=== PATIENT | female | born 1960 | race Hispanic/Latino ===

== ENCOUNTER 2017-04-18 14:23 | Outpatient (CLI) | payer BC ==
--- NOTE | 2017-04-19 13:40 | Mammography Report ---
BONE DEXA:04/18/17 14:23:00 CLINICAL: Postmenopausal. No comparison. TECHNIQUE: Two site bone DEXA performed on an Hologic scanner. FINDINGS: The average BMD of the lumbar spine L1-L4 is 1.122g/cm squared with a T-score of +0.9 and a Z-score of +2.2. The average BMD of the left hip is 0.941g/cm squared with a T-score of 0 and a Z-score of +0.8. IMPRESSION: WHO classification: Normal with average fracture risk based on both spine and left hip measurements. RECOMMENDATION: Clinical correlation and routine screening. DEFINITIONS: BMD = Bone Mineral Density T-score = BMD related to mean peak bone mass of young adult (mean expressed in Standard Deviation) Z-score = Age matched BMD expressed in SD World Health Organization (WHO) Diagnostic Criteria Normal T-score > -1 SD Osteopenia T-score between -1 and -2.4 SD Osteoporosis T-score -2.5 SD or below NOTE: BMD is not the only risk factor for fracture. One should also consider factors such as the patient's age, risk of falling, previous osteoporotic fracture, family history of osteoporotic fractures, current smoker, and low body weight. Z-scores are not calculated if >80 years of age.
--- NOTE | 2017-04-19 14:05 | Mammography Report ---
BILATERAL DIGITAL SCREENING MAMMOGRAM with CAD: 04/18/17 14:23:00 CLINICAL: Routine screening. COMPARISON:11/28/15 FINDINGS: The breasts are mostly fatty with scattered bilateral fibroglandular densities. A right upper asymmetry on the MLO view requires additional imaging.No architectural distortion or suspicious calcifications.The left breast is negative. IMPRESSION: Right asymmetry requiring further workup. BI-RADS CATEGORY: 0 -- Additional Imaging Evaluation Required RECOMMENDATION: Recall for right exaggerated CC and MLO spot magnification views and right breast ultrasound if needed. ACR BI-RADS MAMMOGRAPHIC CODES: 0 = Needs additional imaging evaluation; 1 = Negative; 2 = Benign; 3 = Probably benign; 4 = Suspicious; 5 = Malignant; 6 = Known biopsy-proven malignancy COMMENT: 1. Dense breast tissue, i.e., adenosis, fibrocystic changes, etc., may obscure an underlying neoplasm. 2. Approximately 10% of cancers are not detected with mammography. 3. A negative mammography report should not delay biopsy if a clinically suspicious mass is present. COMMENT: Patient follow-up letters are generated via our [employer] application.
== END 2017-04-18 14:24 | disposition home or self-care (01) ==
LOC: SPVWC 14:23
PROVIDERS: ATTEND Preventive Medicine Public Health & General Preventive Medicine
DX: Z12.31 Encounter for screening mammogram for malignant neoplasm of breast (principal); Z13.820 Encounter for screening for osteoporosis; Z78.0 Asymptomatic menopausal state; Z80.3 Family history of malignant neoplasm of breast
CPT/HCPCS: 77067; 77080

== ENCOUNTER 2017-05-06 15:24 | Outpatient (CLI) | payer BC ==
--- NOTE | 2017-05-06 16:02 | Mammography Report ---
RIGHT DIGITAL DIAGNOSTIC MAMMOGRAM : 05/06/17 15:24:00 CLINICAL: Recalled for asymmetry. COMPARISON:04/18/17 screening FINDINGS: Exaggerated CC and spot magnification MLO views were performed and are negative. IMPRESSION: No mammographic evidence of malignancy. BI-RADS CATEGORY: 1 -- Negative RECOMMENDATION: Routine mammographic screening in one year. ACR BI-RADS MAMMOGRAPHIC CODES: 0 = Needs additional imaging evaluation; 1 = Negative; 2 = Benign; 3 = Probably benign; 4 = Suspicious; 5 = Malignant; 6 = Known biopsy-proven malignancy COMMENT: 1. Dense breast tissue, i.e., adenosis, fibrocystic changes, etc., may obscure an underlying neoplasm. 2. Approximately 10% of cancers are not detected with mammography. 3. A negative mammography report should not delay biopsy if a clinically suspicious mass is present. COMMENT: Patient follow-up letters are generated via our [employer] application.
== END 2017-05-06 15:25 | disposition home or self-care (01) ==
LOC: SPVWC 15:24
PROVIDERS: ATTEND Preventive Medicine Public Health & General Preventive Medicine
DX: N64.89 Other specified disorders of breast (principal)

== ENCOUNTER 2018-10-09 08:57 | Day surgery (SDC) | payer BC ==
[2018-10-09] MEDS ORDERED: ATROPINE IV ONE (09:13)
[2018-10-09] MEDS ORDERED: NITROSTAT SL ONE (09:13)
[2018-10-09] MEDS ORDERED: LOPRESSOR IV ONE (09:14)
[2018-10-09] MEDS ORDERED: ATROPINE 0.1% (CARDIAC) ONE (10:01)
[2018-10-09 11:06] VITALS: BP 143/65
--- NOTE | 2018-10-10 14:56 | CT Calcium Scoring Report ---
Coronary Calcium Score Date of service: 10/10/18 Procedure: High-resolution computed tomographic imaging of the chest was performed on10/09/18 with particular attention paid to the coronary arteries. Images from the examination were analyzed for the presence and extent of coronary artery calcification, using coronary calcium quantification software. The patient tolerated the procedure well and there were no complications. The results of the coronary calcification analysis are provided below. The patient scores are compared with published data related to scores for people of a similar age and the same gender. - Findings Left Anterior Descending Artery: 81.46 Total Agatson Score: 81.46 Findings: Cardiac CTA Indication:chest pain Informed consent obtained Procedure: The patient was brought to the cardiac ct laboratory at [facility] in stable condition after a 4 hour fast. Heart rate was regulated by beta blockade. Sublingual ngt was administered. A coronary calcium score was performed via the Agatston method. Left ventricular function was assessed by the threshold based volumetric segmentation approach. A separate radiology assessment of the non cardiac structures in the field of view will be provided. Superior vena cava in the field of view appears normal Inferior vena cava in the filed of view appears normal Ascending aorta in the field of view appears normal Descending aorta in the field of view appears normal Pulmonary artery in the filed of view appears normal Pulmonary veins enter the left atrium appropriately Left ventricle appears normal Right Ventricle appears normal Left atrium appears normal Left atrial appendage appears normal Right atrium appears normal Interventricular septum appears normal Interatrial septum appears normal Aortic valve appears normal Mitral Valve appears normal Intracardiac mass: none Pericardial effusion: none Coronary Angiography: Dominance: right Origins: normal Left main: normal Left anterior descending coronary artery and diagonal branches: moderate non obstructive calcific plaque in the proximal vessel follwed by a non calcific plaque with positive remodeling producing a potentially significant stenosis of 50-75% or more also in the proximal portion of the vessel. Circumflex coronary artery and obtuse marginal branches: normal Right coronary artery: normal Left ventriculography: ejection fraction 49% Summary: potentially significant stenosis in the proximal left anterior coronary artery
== END 2018-10-09 11:10 | disposition home or self-care (01) ==
LOC: CATHLABREC 08:57 → EDSTATUS 09:45 → CATHLABREC 11:10
PROVIDERS: ATTEND Internal Medicine
DX: I25.10 Atherosclerotic heart disease of native coronary artery without angina pectoris (principal); E78.00 Pure hypercholesterolemia, unspecified; I10 Essential (primary) hypertension; Z87.891 Personal history of nicotine dependence; Z88.2 Allergy status to sulfonamides
CPT/HCPCS: 36415; 75574; 82565; 84520; J0461; Q9967